=== PATIENT | male | born 1950 | race Caucasian/White ===

== ENCOUNTER → 2020-09-23 | Outpatient (CLI) | payer MEDICARE ==
[~2020-09-23] MED LIST: CELECOXIB200 MG PO; CHLORTHALIDONE25 MG PO; LEVO-T75 MCG PO; LIPITOR 20 MG T20 M1 PO; NORVASC 2.5 MG2.5 M1 PO
[2020-09-23 10:20] LABS: HEMATOCRIT 48.2 % (42.0-52.0); HEMOGLOBIN 16.9 gm/dL (14.0-18.0); MCH 33.7 pg (26.0-34.0); MCV 96.1 fL (80.0-100.0); MPV 7.1 fl. (7.2-11.1); RBC 5.01 mil/uL (4.50-6.00); RDW-CV 13.2 % (10.5-14.5); WBC 8.4 thou/uL (4.0-11.0)
[2020-09-23 10:29] LABS: URINE BILIRUBIN NEGATIVE (Negative); URINE BLOOD NEGATIVE (Negative); URINE CLARITY CLEAR; URINE COLOR YELLOW; URINE GLUCOSE-RANDOM NEGATIVE (Negative); URINE KETONES NEGATIVE (Negative); URINE LEUKOCYTES-REFLEX NEGATIVE (Negative); URINE NITRITE-REFLEX NEGATIVE (Negative); URINE PROTEIN NEGATIVE (Negative); URINE SPECIFIC GRAVITY 1.015 (1.005-1.030); URINE UROBILINOGEN 0.2 E.U./dl (0.2-1.0)
[2020-09-23 10:31] LABS: PROTIME 10.9 Seconds (9.20-11.50)
[2020-09-23 10:47] LABS: CALCIUM 9.3 mg/dL (8.5-10.1); CREATININE 0.8 mg/dL (0.6-1.3); POTASSIUM 3.6 mmol/L (3.5-5.1); TOTAL BILIRUBIN 1.7 mg/dL (<0.1-1.0); TOTAL PROTEIN 7.1 g/dL (6.4-8.2)
--- NOTE | 2020-09-23 12:51 | EKG ---
[place] [address] ELECTROCARDIOGRAM REPORT Name: RENETTA CHAO Room: [facility]#: [id number] Admission: 09/23/20 Attend Phys: John Huber, Discharge: Date of : 54 Date of Service: 09/23/20 1035 Report #: [id number] THIS REPORT FOR: //name// [facility] Test Date: 2020-09-23 Test Time: 10:35:36 Pat Name: RENETTA CHAO Department: Room: Gender: International Sales Manager: : 1950 Requested By: John Huber Order Number: [id number] Reading MD: Piyush Em Measurements Intervals [place] Rate: 54 P: 48 AK: 186 QRS: -45 QRSD: 103 T: 42 QT: 441 QTc: 418 Interpretive Statements Sinus bradycardia Left anterior fascicular block Abnormal R-wave progression, late transition No previous ECG available for comparison Electronically Signed On 09-23-2020 12:51:42 [employer] by Piyush Em [email or web address] <ELECTRONICALLY SIGNED> By: Piyush Em MD, [facility] 09/23/20 1251 1035 1035 Piyush Em MD, FAC /EPI
== END ==
LOC: M.LAB 10:00
PROVIDERS: ATTEND Orthopaedic Surgery
DX: Z01.812 Encounter for preprocedural laboratory examination (principal); Z20.822 Contact with and (suspected) exposure to COVID-19; R00.1 Bradycardia, unspecified; I44.4 Left anterior fascicular block

== ENCOUNTER 2020-09-30 07:01 | Inpatient (IN) | payer MEDICARE ==
[~2020-09-30] VITALS: Ht 182.9 cm; Wt 102.1 kg
--- NOTE | ~2020-09-30 | OP ---
[facility] [address] [place] [address] OPERATIVE REPORT Name: RENETTA CHAO Room: [address] M.R.#: [id number] Admission: 09/30/20 Attend Phys: Latricia Mcnamara Discharge: Date of : 54 Report #: [id number] THIS REPORT FOR: cc: Mani Hillman MD, Jason MD ~ Greiner, Robert F. II DO DATE OF SERVICE: 09/30/2020 PREOPERATIVE DIAGNOSIS: Left hip osteoarthritis. POSTOPERATIVE DIAGNOSIS: Left hip osteoarthritis. PROCEDURE: Left total hip arthroplasty. SURGEON: John Huber II, DO ORTHODONTIC BAND MAKER: DONALD Sanchez ANESTHESIA: General endotracheal. ESTIMATED BLOOD LOSS: 600 mL. ANTIBIOTICS: Ancef preoperatively. DRAINS: Medium Hemovac. COMPLICATIONS: None. CONDITION OF THE PATIENT: Stable to recovery room. IMPLANTS: Listed in operative record and progress note. BRIEF HISTORY: The patient was seen in the preoperative area. Preoperative H and P was performed. Site was marked, questions were answered. Risks and benefits were discussed with the patient in detail about surgery. The patient wished to proceed, assuming all risks. DESCRIPTION OF PROCEDURE: The patient was taken to the operative suite and placed supine on the operating table, given appropriate anesthesia. The patient's operative hip was placed in the [place] table leg sy and sterilely prepped and draped in the supine position. Surgery began by longitudinal incision over the anterior portion of the hip, the skin and subcutaneous tissues. A small purvi was made in the tensor fascia. It was then split along its fibers and retracted laterally. An H capsulotomy was then performed and careful hemostasis was maintained with electrocautery and Aquamantys. The head [address] [address] OPERATIVE REPORT Name: RENETTA CHAO Room: [address] [place] ..#: [id number] Admission: 09/30/20 Attend Phys: Latricia Mcnamara Discharge: Date of : 54 Report #: [id number] and neck cutting alignment guide was checked with fluoroscopic guidance. Appropriate cut was made to the head and neck and this was removed. Attention was then turned to the acetabulum. Excess labrum was removed. It was then reamed in sequential fashion up to appropriate size. This showed excellent bleeding bone and excellent position on fluoroscopic guidance. The acetabular cup was then malleted into position and secured with cancellous screws. Metal liner was then applied. The patient's leg was then rotated and extended in the [place] table to expose the femur. It was then broached in sequential fashion up to appropriate size. Appropriate neck was then trialed with appropriate head length and showed excellent fit and fill and excellent stability of hip throughout all range of motion. These trials were then removed. The final stem was then malleted into position and the final head and neck was then malleted into position. It was reduced in appropriate fashion, checked with C-arm for appropriate leg length and shown to have excellent leg length throughout the exam without evidence of dislocation upon range of motion and shuck testing. Wound was then copiously irrigated. Hemostasis was obtained with electrocautery and Aquamantys. The pain cocktail was injected. Medium Hemovac drain was applied and activated. The H capsulotomy was then closed with #1 Vicryl in [id number] fashion. Tensor fascia was closed with #1 Vicryl in running fashion. Skin was closed with 2-0 Vicryl and running 3-0 Monocryl with Dermabond and sterile dressing applied. The patient transported to recovery room in stable condition. Counts were correct throughout the procedure. By: 46 [id number] Huber II, DO /nt
[2020-09-30 13:01] VITALS: BP 126/48
[2020-09-30 15:28] VITALS: BP 116/68
[2020-09-30 21:00] VITALS: BP 125/71
[2020-09-30 23:51] VITALS: BP 128/75
[2020-10-01 05:10] LABS: HEMATOCRIT 40.1 % (42.0-52.0); HEMOGLOBIN 13.9 gm/dL (14.0-18.0); MCH 33.2 pg (26.0-34.0); MCHC 34.8 g/dL (28.0-37.0); MCV 95.5 fL (80.0-100.0); MPV 7.3 fl. (7.2-11.1); RBC 4.19 mil/uL (4.50-6.00); RDW-CV 13.1 % (10.5-14.5); WBC 15.1 thou/uL (4.0-11.0)
[2020-10-01 05:17] LABS: CALCIUM 8.9 mg/dL (8.5-10.1); CREATININE 0.8 mg/dL (0.6-1.3); POTASSIUM 3.4 mmol/L (3.5-5.1)
[2020-10-01 08:00] VITALS: BP 147/85
[2020-10-01 09:37] VITALS: BP 147/85
[2020-10-01] MEDS ORDERED: HYDROCODON-ACE1 EAC7 PO (10:27)
[2020-10-01 11:55] VITALS: BP 147/85
== END 2020-10-01 12:30 | disposition home health service (06) | DRG 470 ==
LOC: M.PRE → M.TBA 07:01 → M.ORTHSURG 07:01 → M.PRE 07:20 → M.ORTHSURG 12:44 → M.PRE 13:28 → M.ORTHSURG 10-01 12:30
PROVIDERS: Family Medicine; Orthopaedic Surgery; ADMIT Internal Medicine; ATTEND Internal Medicine
PROC: 0SRB01Z Replacement of Left Hip Joint with Metal Synthetic Substitute, Open Approach (ICD-10-PCS; principal; 2020-09-30)
DX: M16.12 Unilateral primary osteoarthritis, left hip (principal); I10 Essential (primary) hypertension; E03.9 Hypothyroidism, unspecified; E66.01 Morbid (severe) obesity due to excess calories; E78.5 Hyperlipidemia, unspecified; Z68.30 Body mass index [BMI] 30.0-30.9, adult